=== PATIENT | male | born 1970 | race Caucasian/White ===

== ENCOUNTER 2022-11-19 09:50 | Emergency (ER) | payer BC, SELFPAY ==
[2022-11-19 09:57] VITALS: BP 170/81; PULSE 81; RESP 18; TEMP 36.6; O2SAT 96; BMI 37.7
--- NOTE | 2022-11-19 10:28 | CRLHL7_ITS ---
For Patients: As a result of the Century Cures Act, medical imaging exams and procedure reports are released immediately into your electronic medical record. You may view this report before your referring provider. If you have questions, please contact your health care provider. INDICATION: Injury. Assess Achilles tendon. COMPARISON: None. TECHNIQUE: Axial PD and PD fat-sat, coronal PD and PD fat sat and sagittal T1 and STIR right ankle sequences. FINDINGS: Tendons: Full-thickness tear of the Achilles proximally just below the musculotendinous junction. The musculotendinous junction and the torn tendon somewhat overlap by approximately 5-7 mm with no fluid define retraction. Patchy fibrillated moderately prominent intermediate to high T2 signal expansion of the distal tendon with normal appearance at the insertion. Some edema but no atrophy in the muscle. The other tendons are normal. - Ligaments: Thick low signal syndesmotic ligaments suggests prior injury. Small indistinct anterior talofibular ligament from remote high-grade injury. Deltoid intact. Intact talocalcaneal ligaments without sinus tarsus syndrome. Intact calcaneonavicular spring ligaments. - Ankle joint: Small joint effusion with synovitis. Uniform cartilage. No osteochondral injury. 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 Fibula nearly contacts the lateral talus. Mild osteoarthritis middle subtalar joint. No coalition identified. Moderate osteoarthritis calcaneocuboid joint. Plantar fascia thickness and signal is normal. IMPRESSION: 1. Proximal full-thickness Achilles tear with no significant gap between the proximal distal fibers. 2. Prominent osteoarthritis of the lateral margin posterior subtalar joint. Moderate osteoarthritis middle subtalar joint and calcaneocuboid joint. 3. Small effusion and reactive synovitis tibiotalar ankle joint. Dictated by Gonzalez Barrera MD @ 11/19/2022 12:13:00 PM (Electronically Signed)
[2022-11-19 10:56] VITALS: BP 142/89; PULSE 71; RESP 18; O2SAT 97
[2022-11-19] MEDS: ACETAMINOPHEN 500 MG TABLET 1000 MG PO (11:49)
[2022-11-19 11:50] VITALS: BP 152/89; PULSE 62; RESP 20; O2SAT 97
--- NOTE | 2022-11-19 12:37 | ED.LOWEXIN ---
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 Patient was able hold on and did not fall but is now unable to dorsiflex or plantar flex his right foot. He has no other injuries and has really no musculoskeletal issues chronically. Patient has had no bruising ecchymosis pain is moderate. No other significant symptoms. Related Data Home Medications Medication Instructions Recorded Confirmed lisinopril 10 mg tablet 10 mg PO DAILY 11/19/22 11/19/22 Allergies Allergy/AdvReac Type Severity Reaction Status Date / Time No Known Drug Allergies Allergy Verified 11/19/22 10:01 Review of Systems Status of ROS: Reports: 10 or more systems reviewed and unremarkable except as noted in History and below Exam Narrative: Exam Narrative: EXAM GENERAL: Patient appears comfortable and well. EYES: No scleral icterus. LYMPH: No supraclavicular or cervical lymphadenopathy. SKIN: Visible skin seen during exam normal or with benign process only. EXT: Weakness noted with only minimal swelling in the right calf and ankle no other significant findings. HEART: Regular rate and rhythm with no murmurs, rubs, or gallops. LUNGS: Clear to auscultation bilaterally with no crackles or wheezes. ABD: Soft, non tender, non distended. PSYCH: Good eye contact, speech is not pressured. Const: Vital Signs, click to edit/add: Vital Signs - 24 hr 11/19/22 09:57 11/19/22 10:56 11/19/22 11:50 Temperature 97.9 F Pulse Rate [Left P ulse Oximeter] 81 71 62 Respiratory Rate 18 18 20 Blood Pressure [Le ft Upper Arm] 170/81 H 142/89 H 152/89 H Pulse Oximetry 96 97 97 Oxygen Delivery Me thod Room Air Room Air Room Air Course Vital Signs Vital signs: Initial Vital Signs Temperature 97.9 F 11/19/22 09:57 Temperature Source Temporal Artery Scan 11/19/22 09:57 Pulse Rate 81 11/19/22 09:57 Respiratory Rate 18 11/19/22 09:57 Blood Pressure 170/81 H 11/19/22 09:57 Blood Pressure Mean 110 H 11/19/22 09:57 Blood Pressure Position Sitting 11/19/22 09:57 Pulse Oximetry 96 11/19/22 09:57 Oxygen Delivery Method Room Air 11/19/22 09:57 Vital Signs Temperature 97.9 F 11/19/22 09:57 Pulse Rate 81 11/19/22 09:57 Respiratory Rate 18 11/19/22 09:57 Blood Pressure 170/81 H 11/19/22 09:57 Pulse Oximetry 96 11/19/22 09:57 Oxygen Delivery Method Room Air 11/19/22 09:57 Temperature 97.9 F 11/19/22 09:57 Pulse Rate 62 11/19/22 11:50 Respiratory Rate 20 11/19/22 11:50 Blood Pressure 152/89 H 11/19/22 11:50 Pulse Oximetry 97 11/19/22 11:50 Oxygen Delivery Method Room Air 11/19/22 11:50 MDM - Extremity Injury (Lower) MDM Narrative Medical decision making narrative: Patient is a 52-year-old gentleman who comes in today with what sounds like a torn Achilles tendon history and exam. I did request an MRI which did show a completely torn Achilles tendon. This time patient will be treated with Tylenol Motrin ice leg elevation rest crutches immobilization and follow-up early next week with Orthopedics for definitive repair versus symptomatic PT recovery. Differential Diagnosis Differential diagnosis: Likely ankle sprain and strain, acute internal derangement of knee, fracture of toe and ankle fracture Discharge Plan Discharge Clinical Impression: Achilles rupture Condition: Stable Instructions: Achilles Tendon Rupture (ED) Additional Instructions: Rest Ice Elevation Follow-up with orthopedics next week. Tylenol Motrin Activity Level: No Restrictions Discharge Diet: Regular Prescriptions: No Action lisinopril 10 mg tablet 10 mg PO DAILY Follow Up/Referrals: Edil Mena MD [Primary Care Provider] - Stand Alone Forms: [facility] Info Instructions
[2022-11-19 12:53] VITALS: BP 141/90; PULSE 67; RESP 20; TEMP 37; O2SAT 97
== END 2022-11-19 12:52 | disposition home or self-care (01) ==
PROVIDERS: Emergency Provider Internal Medicine; PCP Family Medicine
DX: S86.091A Other specified injury of right Achilles tendon, initial encounter (principal)
CPT/HCPCS: 73721; 99283; A9270

== ENCOUNTER 2023-02-10 08:45 | Outpatient (RCR) | payer BC, SELFPAY | END 2023-03-12 17:03 | disposition home or self-care (01) | PROVIDERS: PCP Family Medicine; Visit Provider Orthopaedic Surgery Sports Medicine | DX: S86.011D Strain of right Achilles tendon, subsequent encounter (principal); M25.571 Pain in right ankle and joints of right foot; Z51.89 Encounter for other specified aftercare | CPT/HCPCS: 97110; 97116; 97140; 97161 ==

== ENCOUNTER 2025-01-25 14:48 | Emergency (ER) | payer OTHER, SELFPAY ==
--- OUTSIDE RECORDS SUMMARY | 2025-01-25 14:50 | XMS_ITS | Clinical Summary ---
Author Organization [facility] Address [address] [place] [id number] Care Team Providers Care Level Vial Grinder Name Role Phone Edil Mena MD Primary Care Provider [phone] Triston Llamas MD Unavailable Allergies No known active allergies Medications lancets (MICROLET LANCET)Indications :Type 2 diabetes mellitus without complication, without long-term current use of insulin (HC) For testing blood sugars at home daily 100 Each 12 12/20/19 20 Active Blood-Glucose Meter (CONTOUR NEXT ONE METER)Indications: Type 2 diabetes mellitus without complication, without long-term current use of insulin (HC) Dispense glucose meter, test strips and lancets covered by the patient insurance. Test 1 times per day. 1 Device 12/20/19 20 Active CPAPIndications:Ob structive sleep apnea,Obesity, unspecified classification, unspecified obesity type, unspecified whether serious comorbidity present New CPAP machine for home use at pressure: 5-16 cmw , Heated humidifier x 1 q 5 yr, Humidifier chamber x 1 q 6 mo, Full face mask x1 q 3mos, with cushion x 1 q mo, Heated tubing x 1 q 3 mo, Headgear x 1 q 6 mo, Filters: Disposable x 2 q mo non-disposable filters x1 q 6mo, Length of Need: 99 months, Frequency of use: Daily 1 Each 11 03/03/20 23 Active rosuvastatin (CRESTOR) 5 mg tabletIndications: Other hyperlipidemia Start 05/20/2024 and take on Wednesday, and Wednesday evening. 45 Tablet 3 03/03/20 24 Active Additional Information Patient not taking.Reported on 09/01/2024 metFORMIN 500 mg Extended-Release tabletIndications: Type 2 diabetes mellitus without complication, without long-term current use of insulin (HC) Take 1 Tablet (500 mg) by mouth once daily with evening meal. 90 Tablet 09/02/19 25 Active lisinopriL 10 mg tabletIndications: Hypertension, unspecified type Take 1 Tablet (10 mg) by mouth once daily in the evening. 90 Tablet 3 09/02/19 25 Active blood sugar diagnostic (Contour Next Test Strips) stripIndications:T ype 2 diabetes mellitus without complication, without long-term current use of insulin (HC) Dispense test strips covered by the patient insurance. Test 1 times per day. 100 Each 3 09/02/19 25 Active sildenafil citrate 50 mg tabletIndications: Erectile dysfunction, unspecified erectile dysfunction type Take 1 Tablet (50 mg) by mouth once daily if needed for Erectile Dysfunction. Take 30 minutes to 4 hours before sexual activity. Max 100mg/24hr. 12 Tablet 11 09/02/19 25 Active Active Problems Problem Noted Date Diagnosed Date Other hyperlipidemia 03/03/2024 Hypertensive disease 03/03/2024 Type 2 diabetes mellitus wit hout complication, without long-term current use of insulin 12/16/2022 Overview (12/16/2022): Diagnosed with this in 11/2022 with a screening A1C of 6.6 on no diabetes medications. Pre-diabetes 08/27/2021 Overview (08/27/2021): Started on Metformin for Prediabetes on 12/2020. HTN (hypertension) 06/06/2015 Overview (06/06/2015): Diagnosed 09/2014. JOSE AHI-54 09/17/2014 Encounters Date Type Department Care Team Description 01/19/2025 Orders Only [facility] Scanner 1 scan: (1-Ord) [facility], 01/19/2025 from Last 3 Months Immunizations Immunization Administration Dates Next Due COVID-19 vaccine (CellNovo 30mcg/0.3mL) P F, MDV 03/21/2021 DTaP 07/29/1977 Influenza, IIV4 12/31/2020,02/05/2020 MMR 06/24/1977 Polio Virus, Unspecified 07/29/1977 Td (Age >=7 Years) 09/20/1991 Tdap 09/27/2019,11/02/2007 Family History Medical History Relation Name Comments Good Health Father Good Health Mother Relation Name Status Comments Father Mother Social History Tobacco Use Types Packs/Day Years Used Date Smoking Tobacco: Never Smokeless Tobacco: Former Chew Tobacco Cessation:Counseling Given: No Comments:CHEWS ZINS Alcohol Use Standard Drinks/Week Comments Not Currently 14 (1 standard drink = 0.6 oz pu re alcohol) 2-3 per day PHQ-2 Answer Date Recorded PHQ-2 TOTAL SCORE 0 12/16/2022 Social Connections Answer Date Recorded Do you often feel lonely or isolated from those around you? 0 03/03/2024 Alcohol Use Answer Date Recorded How often do you have a drink containing alcohol ? 4 09/01/2024 How many drinks containing a lcohol do you have on a typical day when you are drinking? 0 09/01/2024 How often do you have five or more drinks on one occasion? 1 09/01/2024 Financial Resource Strain Answer Date R ecorded Difficulty of Paying Living Expenses 3 03/03/2024 Difficulty of Paying Living Expenses Not on file 03/03/2024 Food Insecurity Answer Date Recorded Do you worry your food will run out before you are able to buy more? 1 03/03/2024 Transportation Needs Answer Date Record ed Does lack of transportation keep you from medica l appointments? 1 03/03/2024 Does lack of transportation keep you from work, meetings or getting things that you need? 1 03/03/2024 Housing Stability Answer Date Recorded What is your housing situation today? 1 03/03/2024 Utilities Answer Date Recorded Do you have trouble paying f or utilities (for example, heat, electricity, water, phone)? 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 Not on file Not on file Obstetrics History Last Filed Vital Signs Vital Sign Reading Time Taken Comments Blood Pressure 128/83 09/01/2024 8:28 AM CDT Pulse 74 09/01/2024 7:57 AM CDT Temperature 36.4 C (97.5 F) 09/01/2024 7:57 AM CDT Respiratory Rate - - Oxygen Saturation 97% 09/01/2024 7:57 AM CDT Inhaled Oxygen Concentration - - Weight 127.2 kg (280 lb 8 oz) 09/01/2024 7:57 AM CDT Height 178 cm (5' 10.08) 03/03/2024 8:28 AM RN TRAVEL Body Mass Index 40.16 03/03/2024 8:28 AM RN TRAVEL Plan of Treatment Upcoming Encounters Date Type Department Care Team (Late st Contact Info) Description 03/06/2025 7:00 AM RN TRAVEL Orders Only [facility] [address] [facility] [place] [address] [facility]Shruthi 03/09/2025 8:00 AM RN TRAVEL Office Visit [facility] [address] [place] [address] Edil Mena MD [address] [facility] [place] [address] Health Maintenance Due Date Last Done Comments HIV for age 15-65 07/09/1987 Hepatitis B series for 19+ ( 1 of 3 - 19+ 3-dose series) 07/09/1991 Pneumococcal series for age 50+ (1 of 2 - PCV) 07/09/1991 Zoster (shingles) series for age 50+ (1 of 2) 2022 Depression screening for age 12+ 12/17/2023 12/16/2022, 01/06/2021, 12/31/2020, Additional history exists Influenza Vaccine (#1) 2024 12/31/2020, 2019 BMI (ht and wt on same day) for age 18+ 03/03/2025 03/03/2024, 12/31/2020, 10/04/2019, Additional history exists Lipids for age 45-75 03/03/2029 03/03/2024, 12/11/2022, 08/25/2021, Additional history exists Tetanus booster 09/26/2029 09/27/2019, 10/20, 09/20/1991 Colonoscopy through age 75 03/28/203103/28, 03/28/2021, 03/28/2021 RSV vaccine for adults or (1 - 1-dose 75+ series) 07/09/2047 Hepatitis C screening for ag e 18-79 Completed 08/25/2021 Goals Goal Patient Goal Type Associated Problems Recent Progress Patient-Stated? Author BLOOD PRESSURE - MAINTAINS BP less than 140/90 Blood Pressure No Edil Mena MD Procedures Procedure Name Priority Date/Time Associated Diagnosis Comments SCAN-EYE EXAM 01/19/2025 12:00 AM CDT LIPID PANEL W REFLEX MEASURED LDL Routine 03/03/2024 9:40 AM RN TRAVEL Type 2 diabetes mellitus without complication, without long-term current use of insulin (HC) ANTI HCV Add On 08/25/2021 8:31 AM CDT Need for hepatitis C screening test COLONOSCOPY SCREENING Routine 03/28/2021 8:47 AM RN TRAVEL Screening for colon cancer from Last 3 Months or Most Recently Relevant to Health Maintenance Results * SCAN-EYE EXAM (01/19/2025 12:00 AM CDT) us Scanner OTHER Final Result * LIPID PANEL W REFLEX MEASURED LDL (03/03/2024 9:40 AM RN TRAVEL) CHOLESTEROL, TOTAL 160 <200 mg/dL [facility] HDL CHOLESTEROL 51 > OR = 40 mg/dL [facility] TRIGLYCERIDES 93 <150 mg/dL [facility] LDL-CHOLESTEROL 90 mg/dL (calc) [facility] Comment: Reference range: <100 Desirable range <100 mg/dL for primary prevention; <70 mg/dL for patients with CHD or diabetic patients with > or = 2 CHD risk factors. LDL-C is now calculated using the June calculation, which is a validated novel method providing better accuracy than the Friedewald equation in the estimation of LDL-C. Ned MORAES et al. VIKTORIA. 2013;310(19): 3188-3157 (http://education.Anytime DD/faq/PKA554) CHOL/HDLC RATIO 3.1 <5.0 (calc) [facility] NON HDL CHOLESTEROL 109 <130 mg/dL (calc) [facility] Comment: For patients with diabetes plus 1 major ASCVD risk factor, treating to a non-HDL-C goal of <100 mg/dL (LDL-C of <70 mg/dL) is considered a therapeutic option. Blood BLOOD SPECIMEN / Unknown 03/03/2024 9:40 AM RN TRAVEL 03/03/2024 9:41 AM RN TRAVEL Edil Mena MD CHEMISTRY Final Resu lt Performing Organization Address City/[facility]/ZIP Co de Phone Number [employer] [facility] [address] [place] [address], [facility] [address] [place] [id number] * ANTI HCV (08/25/2021 8:31 AM CDT) HEPATITIS C ANTIBODY Non-React lorenza Non-React lorenza 08/27/2021 5:36 PM CDT [facility] Comment:Antibodies to HCV no t detected; does not exclude the possibility of exposure to HCV. Blood BLOOD SPECIMEN / Unknown Venipuncture / Unknown 08/25/2021 8:31 AM CDT 08/25/2021 8:32 AM CDT Edil Mena MD SEND OUTS Final Resu lt [facility] [address] [place] [address], [place] * COLONOSCOPY (03/28/2021 8:48 AM RN TRAVEL) 03/28/2021 8:48 AM RN TRAVEL Narrative Transcriptions Ned Strange MD - 03/28/2021 9:31 AM CST Patient Name: Bear Jaffe Procedure Date: 03/28/2021 Gender: Male Date of : 1970 Admit Type: Outpatient Procedure: Colonoscopy Proceduralist: Ned Strange MD , Keila Pro RN(Nurse) Referring MD: Suzette Mccall Indications/Pre-Op Diagnosis: Screening for colorectal malignant neoplasm, This is the patient's first colonoscopy Medications: Fentanyl 100 micrograms IV, Midazolam 4 mgIV, The level of sedation administered wasmoderate Procedure Description: The patient had risks, benefits and alternatives explained to andgave informed consent. The patient had a stable cardiopulmonary status and judged an adequate candidate for conscious sedation. The Colonoscope was passed through the anus and advanced to thececum, identified by appendiceal orifice and ileocecal valve. Thecolonoscopy was performed without difficulty. The patient tolerated the procedure well. The quality of the bowel preparation was good. The ileocecal valve, appendiceal orifice, and rectum were photographed. Complications: No immediate complications. Estimated Blood Loss & Specimen: Estimated blood loss: none. Specimen collected - Yes and sent to Laboratory Findings: The perianal and digital rectal examinations were normal. The entire examined colon appeared normal on direct and retroflexion views. Impressions/Post-Op Diagnosis: - The entire examined colon is normal on direct and retroflexionviews. - No specimens collected. Recommendation: - Patient has a contact number available for emergencies. The signsand symptoms of potential delayed complications were discussed with the patient. Return to normal activities tomorrow. Written discharge instructions were provided to the patient. - Resume previous diet. - Continue present medications. - Repeat colonoscopy in 10 years for screening purposes. Moderate Sedation: Moderate (conscious) sedation was administered by the endoscopy nurse and supervised by the endoscopist. The following parameters were monitored: oxygen saturation, heart rate, respiratory rate, blood pressure, adequacy of pulmonary ventilation and reponse to care. Please refer to the patient's medical record flowsheets and nursing notes for moderate sedation details. Total physician intraservice time was 13 minutes. Ned Strange MD 03/28/2021 9:31:39 AM This report has been signed electronically. Note Initiated On: 03/28/2021 8:48 AM Procedure Code(s): --- Professional --- 12875, Colonoscopy, flexible; diagnostic, including collection of specimen(s) bybrushing or washing, when performed (separateprocedure) Diagnosis Code(s): --- Professional --- Z12.11, Encounter for screening formalignant neoplasm of colon CPT copyright 2020 [employer] [employer]. All rights reserved. The codes documented in this report are preliminary and upon bottling line operator reviewmay be revised to meet current compliance requirements. Scope In: 9:11:05 AM Scope Withdrawal Time 0 hours 7 minutes 14 seconds Scope Out: 9:22:18 AM us Ned Strange MD PROCEDURE ORD Final Res ult from Last 3 Months or Most Recently Relevant to Health Maintenance Insurance [facility] Care Teams Level Vial Grinder Relationship Specialty Start Date End Date Edil Mena MD [address] [place] [address] PCP - General 11/01/07 Triston Llamas MD [address] [place] [address] Sleep Medicine 12/24/22
[2025-01-25 14:56] VITALS: BP 171/91; PULSE 82; RESP 20; TEMP 36.8; O2SAT 98; BMI 39.5
--- NOTE | 2025-01-25 15:12 | CRLHL7_ITS ---
For Patients: As a result of the Century Cures Act, medical imaging exams and procedure reports are released immediately into your electronic medical record. You may view this report before your referring provider. If you have questions, please contact your health care provider. Indication: Crush injury Technique: Left foot, 3 views. Comparison: None. Findings/Impression: There is an acute, comminuted, mildly displaced fracture of the tuft of the great toe distal phalanx. There is overlying soft tissue irregularity and soft tissue bandage. No radiopaque foreign body. Posterior calcaneal and minimal plantar calcaneal enthesopathy. Minimal scattered degenerative changes. Bipartite medial hallux sesamoid. Dictated by Cara Marsh MD @ 01/25/2025 3:45:34 PM (Electronically Signed)
--- NOTE | 2025-01-25 15:23 | ED_ITS ---
HPI - General Adult General Date Seen: 01/25/25 Chief complaint: Extremity Pain/Injury, Lower Stated complaint: 300lb cabinet fell on L foot Time Seen by Provider: 01/25/25 14:56 History of Present Illness HPI narrative: Patient is a 54-year-old who was at work, he and another person were lifting a 300 lb cabinet with appliance straps. He says his partners was not attached quite right and when they lifted up the cabinet fell on to his right foot injuring primarily his great toe. Related Data Home Medications ?Medication ?Instructions ?Recorded ?Confirmed lisinopril 10 mg tablet 10 mg PO DAILY 11/19/2209/13 metformin 500 mg tablet,extended 500 mg PO DAILY 01/0501/25/25 release 24 hr Previous Rx's ?Medication ?Instructions ?Recorded Knee Scooter- Adult #1 ea 11/24/22 Allergies Allergy/AdvReac Type Severity Reaction Status Date / Time No Known Drug Allergies Allergy Verified 01/25/25 14:55 [facility] Medical History (Updated 01/25/25 @ 16:12 by Lisa Kapadia MD) Right knee meniscal tear ?S83.206A - Unspecified tear of unspecified meniscus, current injury, right knee, initial encounter (ICD-10) Surgical History (Updated 11/24/22 @ 10:35 by Juana Schwab ~ [facility], [employer]) H/O brain surgery (~2012) ?Z98.890 - Other specified postprocedural states (ICD-10) History of nasal surgery ?Z98.890 - Other specified postprocedural states (ICD-10) History of arthroscopy of right knee (04/26/19) ?Z98.890 - Other specified postprocedural states (ICD-10) Social History (Reviewed 01/05/23 @ 13:15 by Juana Schwab ~ [facility], [employer]) Narrative: -Zoya Smoking Status: Never smoker Do you use any of these nicotine containing products: Smokeless Tobacco Second hand tobacco smoke exposure: Yes Exam Narrative: Exam Narrative: Vital signs reviewed In general, alert, well-appearing man. Extremities: Examination of his right foot shows a crush type laceration of his right great toe which runs just proximal to the eponychium. The nail itself is intact. Bleeding is controlled. Midfoot does not seem tender, no other lacerations. The tip of the toe is somewhat purplish in color, sensation is decreased to light touch there, intact throughout the rest of the toe. Difficult to know at this time whether that is simply crush injury or whether there may be some devitalized tissue there. Const: Vital Signs, click to edit/add: Vital Signs - 24 hr 01/25/25 14:56 Temperature 98.3 F Pulse Rate [Pulse Oximeter] 82 Respiratory Rate 20 Blood Pressure [Ri ght Upper Arm] 171/91 H Pulse Oximetry 98 Oxygen Delivery Me thod Room Air Course Vital Signs Vital signs: Initial Vital Signs Temperature 98.3 F 01/25/25 14:56 Temperature Source Temporal Artery Scan 01/25/25 14:56 Pulse Rate 82 01/25/25 14:56 Respiratory Rate 20 01/25/25 14:56 Blood Pressure 171/91 H 01/25/25 14:56 Blood Pressure Mean 117 H 01/25/25 14:56 Pulse Oximetry 98 01/25/25 14:56 Oxygen Delivery Method Room Air 01/25/25 14:56 Vital Signs Temperature 98.3 F 01/25/25 14:56 Pulse Rate 82 01/25/25 14:56 Respiratory Rate 20 01/25/25 14:56 Blood Pressure 171/91 H 01/25/25 14:56 Pulse Oximetry 98 01/25/25 14:56 Oxygen Delivery Method Room Air 01/25/25 14:56 Temperature 98.3 F 01/25/25 14:56 Pulse Rate 82 01/25/25 14:56 Respiratory Rate 20 01/25/25 14:56 Blood Pressure 171/91 H 01/25/25 14:56 Pulse Oximetry 98 01/25/25 14:56 Oxygen Delivery Method Room Air 01/25/25 14:56 Medical Decision Making Imaging Data Left foot x-ray: Attestation: I have reviewed the pertinent imaging results. Radiologist's impression: Patient: Bear Jaffe MR#: [id number] : 1970 Acct:[id number] Loc: ED Service Date: 01/25/[address]: Ordering Physician: Lisa Kapadia M.D. Date of Service: 01/25/25 Procedure(s): XR foot LT min 3V Accession Number(s): [id number] cc: Lisa Kapadia M.D.; Edil Mena M.D.~ For Patients: As a result of the Century Cures Act, medical imaging exams and procedure reports are released immediately into your electronic medical record. You may view this report before your referring provider. If you have questions, please contact your health care provider. Indication: Crush injury Technique: Left foot, 3 views. Comparison: None. Findings/Impression: There is an acute, comminuted, mildly displaced fracture of the tuft of the great toe distal phalanx. There is overlying soft tissue irregularity and soft tissue bandage. No radiopaque foreign body. Posterior calcaneal and minimal plantar calcaneal enthesopathy. Minimal scattered degenerative changes. Bipartite medial hallux sesamoid. Dictated by Cara Marsh MD @ 01/25/2025 3:45:34 PM Discharge Plan Discharge Clinical Impression: Crushing injury of great toe, left Patient Disposition: Home, Self-Care Condition: Stable Additional Instructions: Stitches are absorbable and will dissolve. As we discussed, at the very tip of your toe is discolored, and I do not know whether this represents the bruising or whether the tissue may be no longer viable. Keep an eye on this area, if it is turning darker/black, it is likely devitalized. I would like someone in clinic to look at this on Wednesday to make sure it is healing okay. You have a tuft fracture, and I have prescribed antibiotics since the skin overlying that fracture is not intact. Elevate your foot when you can to help with swelling. You can use ibuprofen or Tylenol as needed for pain. Ice may be helpful as well. I would use the postop shoe until your toe is feeling pain-free enough to tolerate a regular shoe. If your toe is becoming significantly more swollen, red, or painful, you should return to the ER for re-evaluation at any time. Prescriptions: No Action (DME) Knee Scooter- Adult Misc See Rx Instructions .ROUTE .MEDSUPPLY Qty: 1 0RF Rx Instructions: As directed metformin 500 mg tablet extended release 24 hr 500 mg PO DAILY lisinopril 10 mg tablet 10 mg PO DAILY Follow Up/Referrals: Edil Mena MD [Primary Care Provider, Family Practice] Stand Alone Forms: [employer] Info Instructions
--- NOTE | 2025-01-25 16:12 | ED_ITS ---
HPI - General Adult General Date Seen: 01/25/25 Chief complaint: Extremity Pain/Injury, Lower Stated complaint: 300lb cabinet fell on L foot Time Seen by Provider: 01/25/25 14:56 History of Present Illness HPI narrative: Patient is a 54-year-old, generally healthy man who was at work, they were lifting a very heavy cabinet using appliance straps. Apparently the person he was working with did not have their strep quite attached him when they lifted up the cabinet fell on his left foot injuring primarily his great toe. Related Data Home Medications ?Medication ?Instructions ?Recorded ?Confirmed lisinopril 10 mg tablet 10 mg PO DAILY 11/19/2209/13 metformin 500 mg tablet,extended 500 mg PO DAILY 01/0501/25/25 release 24 hr Previous Rx's ?Medication ?Instructions ?Recorded Knee Scooter- Adult #1 ea 11/24/22 Allergies Allergy/AdvReac Type Severity Reaction Status Date / Time No Known Drug Allergies Allergy Verified 01/25/25 14:55 [facility] Medical History (Updated 01/25/25 @ 16:12 by Lisa Kapadia MD) Right knee meniscal tear ?S83.206A - Unspecified tear of unspecified meniscus, current injury, right knee, initial encounter (ICD-10) Surgical History (Updated 11/24/22 @ 10:35 by Juana Schwab ~ [facility]) H/O brain surgery (~2012) ?Z98.890 - Other specified postprocedural states (ICD-10) History of nasal surgery ?Z98.890 - Other specified postprocedural states (ICD-10) History of arthroscopy of right knee (04/26/19) ?Z98.890 - Other specified postprocedural states (ICD-10) Social History (Reviewed 01/05/23 @ 13:15 by Juana Schwab ~ [facility], [facility]) Narrative: -Zoya Smoking Status: Never smoker Do you use any of these nicotine containing products: Smokeless Tobacco Second hand tobacco smoke exposure: Yes Exam Narrative: Exam Narrative: Vital signs reviewed In general, alert, well-appearing man. Extremities: Examination of his right foot shows a crush type laceration of his right great toe which runs just proximal to the eponychium. The nail itself is intact. Bleeding is controlled. Midfoot does not seem tender, no other lacerations. The tip of the toe is somewhat purplish in color, sensation is decreased to light touch there, intact throughout the rest of the toe. Difficult to know at this time whether that is simply crush injury or whether there may be some devitalized tissue there. Const: Vital Signs, click to edit/add: Vital Signs - 24 hr 01/25/25 14:56 Temperature 98.3 F Pulse Rate [Pulse Oximeter] 82 Respiratory Rate 20 Blood Pressure [Ri ght Upper Arm] 171/91 H Pulse Oximetry 98 Oxygen Delivery Me thod Room Air Course Course ED Course: I reviewed the x-rays, there is a tuft fracture which is comminuted. Final radiology report reviewed as well. Procedure note: Placed a digital block using lidocaine with epinephrine, following this I was able to better explore the wound. The nail was completely avulsed and held on only by a thin piece of skin at its distal edge. I cut this with scissors and removed the nail. The nail bed itself is significantly crushed. I did place a couple of stitches using 5 0 Vicryl to try in approximate some of the edges of the nail bed, but largely most of these pieces are fragile enough that they are simply not suturable. The eponychium is intact, discussed that I anticipate the nail will grow back over the coming months, reviewed that the nailbed will likely heal somewhat unevenly in this may affect the appearance of the nail. We also discussed the tip of the toe, reviewed that that may not be viable and if so will scab over and fall off. I would like him to be seen in clinic in a few days to have this looked at. We put Gelfoam and then a tube gauze dressing as well as Coban, will have him use a postop shoe until this is feeling better. Elevate as able. Ibuprofen or Tylenol as needed. I prescribed a few days of Keflex from [facility]. Return for signs of infection. Vital Signs Vital signs: Initial Vital Signs Temperature 98.3 F 01/25/25 14:56 Temperature Source Temporal Artery Scan 01/25/25 14:56 Pulse Rate 82 01/25/25 14:56 Respiratory Rate 20 01/25/25 14:56 Blood Pressure 171/91 H 01/25/25 14:56 Blood Pressure Mean 117 H 01/25/25 14:56 Pulse Oximetry 98 01/25/25 14:56 Oxygen Delivery Method Room Air 01/25/25 14:56 Vital Signs Temperature 98.3 F 01/25/25 14:56 Pulse Rate 82 01/25/25 14:56 Respiratory Rate 20 01/25/25 14:56 Blood Pressure 171/91 H 01/25/25 14:56 Pulse Oximetry 98 01/25/25 14:56 Oxygen Delivery Method Room Air 01/25/25 14:56 Temperature 98.3 F 01/25/25 14:56 Pulse Rate 82 01/25/25 14:56 Respiratory Rate 20 01/25/25 14:56 Blood Pressure 171/91 H 01/25/25 14:56 Pulse Oximetry 98 01/25/25 14:56 Oxygen Delivery Method Room Air 01/25/25 14:56 Discharge Plan Discharge Clinical Impression: Crushing injury of great toe, left Patient Disposition: Home, Self-Care Condition: Stable Additional Instructions: Stitches are absorbable and will dissolve. As we discussed, at the very tip of your toe is discolored, and I do not know whether this represents the bruising or whether the tissue may be no longer viable. Keep an eye on this area, if it is turning darker/black, it is likely devitalized. I would like someone in clinic to look at this on Wednesday to make sure it is healing okay. You have a tuft fracture, and I have prescribed antibiotics since the skin overlying that fracture is not intact. Elevate your foot when you can to help with swelling. You can use ibuprofen or Tylenol as needed for pain. Ice may be helpful as well. I would use the postop shoe until your toe is feeling pain-free enough to tolerate a regular shoe. If your toe is becoming significantly more swollen, red, or painful, you should return to the ER for re-evaluation at any time. Prescriptions: No Action (DME) Knee Scooter- Adult Misc See Rx Instructions .ROUTE .MEDSUPPLY Qty: 1 0RF Rx Instructions: As directed metformin 500 mg tablet extended release 24 hr 500 mg PO DAILY lisinopril 10 mg tablet 10 mg PO DAILY Follow Up/Referrals: Edil Mena MD [Primary Care Provider, Family Practice] Stand Alone Forms: [employer] Info Instructions
== END 2025-01-25 16:27 | disposition home or self-care (01) ==
PROVIDERS: Emergency Provider Emergency Medicine; PCP Family Medicine
DX: S92.422A Displaced fracture of distal phalanx of left great toe, initial encounter for closed fracture (principal); S91.202A Unspecified open wound of left great toe with damage to nail, initial encounter; W23.0XXA Caught, crushed, jammed, or pinched between moving objects, initial encounter
CPT/HCPCS: 11760; 73630; 99283; 99284